=== PATIENT | male | born 1980 | race African-American/Black ===

== ENCOUNTER 2017-06-04 17:28 | Emergency (ER) | payer SELFPAY, OTHER ==
[2017-06-04] MEDS: HYDROcodone/APAP 5/325MG 1 TAB TABLET PO (18:04)
== END 2017-06-04 18:58 | disposition home or self-care (01) ==
LOC: ER 17:28
DX: M25.472 Effusion, left ankle (principal)
CPT/HCPCS: 29515; 73610; 99284